=== PATIENT | female | born 1975 | race Caucasian/White ===

== ENCOUNTER → 2020-01-11 10:11 | Outpatient (CLI) | payer OTHER, SELFPAY | PROVIDERS: PCP Physician Assistant; Referring Provider Family Medicine; Visit Provider Family Medicine | DX: R50.9 Fever, unspecified (principal) | CPT/HCPCS: 87635; C9803; U0003 ==

== ENCOUNTER 2020-02-11 15:55 | Outpatient (RCR) | payer OTHER, SELFPAY | END 2020-02-11 23:59 | disposition home or self-care (01) | LOC: NS 15:55 | PROVIDERS: PCP Physician Assistant; Visit Provider Physician Assistant | DX: Z71.3 Dietary counseling and surveillance (principal); E66.01 Morbid (severe) obesity due to excess calories; Z68.41 Body mass index [BMI] 40.0-44.9, adult | CPT/HCPCS: 97802 ==

== ENCOUNTER 2020-03-19 20:48 | Emergency (ER) | payer OTHER, SELFPAY ==
[2020-03-19 20:48] VITALS: BP 134/100; PULSE 115; RESP 20; TEMP 35.4; O2SAT 98; BMI 45.7
--- NOTE | 2020-03-19 21:03 | RAD_ITS ---
STUDY: X-RAY CHEST REASON FOR EXAM: Female, 44 years old. Dyspnea, shortness of breath, COVID positive. TECHNIQUE: Single AP portable view of the chest. COMPARISON: None. FINDINGS: The lungs are clear and expanded. There is no demonstrated pleural abnormality. Normal size heart. Normal mediastinum and kacie. Normal visualized pulmonary arteries. Normal visualized aortic arch and descending thoracic aorta. Normal visualized thoracic spine. Normal visualized ribs, clavicles, and shoulders. There is no demonstrated abnormality of the visualized soft tissue structures of the upper abdomen. RAD/Chest 1 View (Portable) IMPRESSION: Normal x-ray examination of the chest. Electronically Signed: Alessio Corral MD at 21:41 EST , Service support ,
[2020-03-19 21:21] VITALS: BP 133/100; PULSE 110; RESP 20; TEMP 35.9; O2SAT 97; O2SAT 98
--- NOTE | 2020-03-19 21:44 | ED.VISSUMM ---
- ER Visit Summary Date of Service: 03/19/20 Chief Complaint: Shortness of breath History of Present Illness: The patient is a 44 F who was diagnosed with COVID-19 earlier this week. She felt short of breath today, and was advised to come to the ED if she felt short of breath. She also has a cough. No history of heart disease or PE. No other complaints at this time. Physical Examination: Afebrile and vital signs unremarkable except for heart rate of 110 and hypertension. She appears in no acute distress, speaking, moving, breathing comfortably. Lungs are clear in all felix. Heart is regular. Skin appears normal. Test Results: Chest x-ray is unremarkable. Emergency Department Course and Treatment: Patient likely has symptoms from her COVID-19 infection. No history of heart disease, PE, lung disease. She was able to jog in place, and her oxygen was 97%. Chest x-ray was unremarkable. I believe this is a normal symptom of her COVID-19 infection. Return for worsening dyspnea, hypoxia, any new symptoms or concerns. Treatment Plan: As above Disposition: Discharge Impression: COVID-19 This note was generated with [employer] dictation software. It may contain incorrect words, spelling, and punctuation that were not noted in review of the chart prior to signing ED Disposition - Plan for ED Patient: Referrals: Rommel Wisdom PA [Primary Care Provider] -
--- NOTE | 2020-03-19 21:45 | ED.DEP ---
ED Disposition - Plan for ED Patient: Instructions: Coronavirus Disease 2019 (COVID-19) Referrals: Rommel Wisdom PA [Primary Care Provider] -
[2020-03-19 21:53] VITALS: BP 135/83; PULSE 98; RESP 16; O2SAT 99
== END 2020-03-19 21:53 | disposition home or self-care (01) ==
LOC: ED 21:46
PROVIDERS: Emergency Provider Emergency Medicine; PCP Physician Assistant
DX: U07.1 COVID-19 (principal); F32.9 Major depressive disorder, single episode, unspecified
CPT/HCPCS: 71045; 99282

== ENCOUNTER 2023-02-05 17:41 | Emergency (ER) | payer OTHER, SELFPAY ==
[2023-02-05 17:42] VITALS: BP 134/88; PULSE 75; RESP 18; TEMP 36.6; O2SAT 99; BMI 29.2
--- NOTE | 2023-02-05 17:55 | RAD_ITS ---
EXAM: XR LEFT KNEE COMPLETE, 4 OR MORE VIEWS CLINICAL INDICATION: INJURY TECHNIQUE: Four or more views of the left knee. COMPARISON: No relevant prior studies available. FINDINGS: BONES/JOINTS: Unremarkable. No acute fracture. No subluxation. Normal alignment. Preservation of the joint space. No sclerotic or destructive changes observed. SOFT TISSUES: Unremarkable. No soft tissue swelling or gas. No radiopaque foreign body. RAD/Knee 4 or More Views IMPRESSION: Negative left knee x-rays. Electronically Signed: Rafat Odonnell MD at 18:36 EDT ,
--- NOTE | 2023-02-05 17:55 | RAD_ITS ---
EXAM: XR LEFT ELBOW COMPLETE, 3 OR MORE VIEWS CLINICAL INDICATION: FALL TECHNIQUE: Frontal, lateral and oblique views of the left elbow. COMPARISON: No relevant prior studies available. FINDINGS: BONES/JOINTS: Unremarkable. There is no displacement of the anterior or posterior fat pads. No acute fracture. No subluxation. Normal alignment. Preservation of the joint space. No destructive or sclerotic lesions. SOFT TISSUES: Unremarkable. No soft tissue swelling or gas. No radiopaque foreign body. RAD/Elbow min 3 Views IMPRESSION: Negative left elbow. Electronically Signed: Rafat Odonnell MD at 18:45 EDT ,
--- NOTE | 2023-02-05 17:55 | RAD_ITS ---
EXAM: XR LEFT WRIST COMPLETE, 3 OR MORE VIEWS CLINICAL INDICATION: INJURY TECHNIQUE: Frontal, lateral and oblique views of the left wrist. COMPARISON: No relevant prior studies available. FINDINGS: BONES/JOINTS: Unremarkable. No acute fracture. No subluxation. Normal alignment. Preservation of the joint space. No sclerotic or destructive changes observed. SOFT TISSUES: Unremarkable. No soft tissue swelling or gas. No radiopaque foreign body. RAD/Wrist min 3 Views IMPRESSION: Negative left wrist x-rays. Electronically Signed: Rafat Odonnell MD at 18:40 EDT ,
--- NOTE | 2023-02-05 19:32 | ED.VIS.FALL ---
HPI HPI - Fall History of Present Illness Chief Complaint: Fall Informant: patient Narrative Narrative: 47-year-old female was at work tonight when she slipped on the wet floor. Right leg went out in front of her with her left leg bent underneath and into a splint like formation. She states that she tried to catch herself with the left wrist and stoves in the left arm. She notes pain from the wrist up into the shoulder. She denies any head injury. She denies any pelvic or thigh pain. She notes bruising to the inferior left knee. [facility] Medical History (Updated 02/05/23 @ 20:[address] Keanu Guardado, DO) Anxiety Depression Migraine Home Medications bupropion HCl (smoking deter) 150 mg tablet,12 hr sustained-release(smoking deterrent) 150 mg PO DAILY 03/19/20 [History Last Taken Unknown] citalopram 20 mg tablet 20 mg PO DAILY 03/19/20 [History Last Taken Unknown] norethindrone (contraceptive) 0.35 mg tablet 1 tab PO DAILY 03/19/20 [History Last Taken Unknown] Allergy/AdvReac Type Severity Reaction Status Date / Time banana Allergy Swelling Verified 02/05/23 17:42 ibuprofen [From Motrin] Allergy Other Verified 02/05/23 17:42 latex Allergy Swelling Verified 02/05/23 17:42 Social History Smoking Status: Never smoker ROS ROS ED Constitutional Constitutional ED: Denies chills or weight loss Eyes Eyes: Denies change in vision or diplopia ENT ENT ED: Denies ear pain, rhinorrhea or sore throat Cardiovascular Cardiovascular: Denies chest pain, orthopnea, palpitations or racing heartbeat Respiratory/Chest Respiratory/Chest: Denies cough, dyspnea or orthopnea Gastrointestinal Gastrointestinal: Denies abdominal pain, diarrhea, nausea or vomiting Genitourinary Genitourinary ED: Denies dysuria, hematuria or urinary frequency Musculoskeletal Musculoskeletal: Reports neck pain and other Details: See HPI ; Denies arthralgias, back pain or myalgias Integumentary Denies abscess or rash Neurologic Neurologic: Denies headache(s) or weakness Psychiatric Psychiatric: Denies anxiety, depression, suicidal ideation or suicidal thoughts Endocrine Endocrinology: Denies polydipsia, polyphagia or polyuria Allergic/Immunologic Allergic/Immunologic ED: Denies mouth swelling, tongue swelling or urticaria EXAM Physical Exam Const Vital Signs: 02/05/23 17:42 02/05/23 19:20 Temperature 97.8 F Temperature Source Temporal Pulse Rate 75 Respiratory Rate 18 Respiratory Effort Normal Non-Labored Respiratory Pattern Normal Blood Pressure 134/88 H Blood Pressure Mean 103 Pulse Ox 99 Positive well nourished and well developed General Appearance ED: well developed HEENT Reports normocephalic, head/scalp atraumatic and moist mucous membranes Eyes PERRL and EOMs intact bilaterally Neck no lymphadenopathy, supple and no JVD Resp normal respiratory effort and clear to auscultation bilaterally Cardio regular rate, regular rhythm and no murmurs GI normal to inspection, nondistended, normoactive bowel sounds and non-tender Palpation: soft Back/Spine no CVA tenderness and normal ROM Extremity Extremity Narrative: Patient reports tenderness near the tibial tuberosity on the left. Extensor mechanism is intact. No significant ecchymosis effusion or deformity noted. Patient notes tenderness at the wrist elbow and shoulder joints on the left. She has tenderness along the left trapezius muscle. Supraspinatus appears intact. She is with range of motion. General Extremety ED: Negative for edema General Extremity: Negative for edema Neuro oriented x3 and CN's II-XII intact bilaterally Sensorium / Orientation: alert Motor Exam: strength 5/5 throughout Psych mental status grossly normal Mood & Affect: Negative for depressed or tearful Skin no rashes or lesions noted and no wounds MDM MDM MDM Narrative Medical decision making narrative: My interpretation of the plain films of the left elbow is no acute fracture. My interpretation of the plain films of the left knee is no acute fracture. Interpretation of the plain films of the left wrist is no acute fracture. My interpretation of the plain films of the left shoulder is no acute fracture. Patient was given work restrictions as well as follow-up if not improved. Would recommend RICEM therapy. Radiography Diagnostic Testing: Clinical Impression(s) from Imaging Studies Elbow X-Ray 02/05/23 17:55 IMPRESSION: Negative left elbow. Electronically Signed: Rafat Odonnell MD at 18:45 EDT , Knee X-Ray 02/05/23 17:55 IMPRESSION: Negative left knee x-rays. Electronically Signed: Rafat Odonnell MD at 18:36 EDT , Wrist X-Ray 02/05/23 17:55 IMPRESSION: Negative left wrist x-rays. Electronically Signed: Rafat Odonnell MD at 18:40 EDT , Shoulder X-Ray 02/05/23 20:00 IMPRESSION: Negative left shoulder x-rays. Electronically Signed: Rafat Odonnell MD at 20:28 EDT , Discharge Plan Triage Chief Complaint: Fall ED Provider: Keanu Guardado Dx/Rx/DC Orders Clinical Impression: Contusion of elbow, left, Contusion of knee, left, Left wrist sprain, Sprain of left shoulder Instructions: ED Shoulder Sprain Prescriptions: No Action citalopram 20 MG tablet 20 mg PO DAILY norethindrone (contraceptive) 0.35 MG tablet 1 tab PO DAILY bupropion HCl (smoking deter) 150 MG tablet extended release 12 hr 150 mg PO DAILY Primary Care Provider: Rommel Wisdom Referrals: [facility] [Non-Staff] - As Needed Rommel Wisdom, PA [Primary Care Provider] - Disposition Disposition: Home, Self Care
--- NOTE | 2023-02-05 20:00 | RAD_ITS ---
EXAM: XR LEFT SHOULDER COMPLETE, 2 OR MORE VIEWS CLINICAL INDICATION: injury TECHNIQUE: Two or more views of the left shoulder. COMPARISON: No relevant prior studies available. FINDINGS: BONES/JOINTS: Unremarkable. No acute fracture. No subluxation. Normal alignment. Preservation of the joint space. No sclerotic or destructive changes observed. SOFT TISSUES: Unremarkable. No soft tissue swelling or gas. No radiopaque foreign body. RAD/Shoulder min 2 Views IMPRESSION: Negative left shoulder x-rays. Electronically Signed: Rafat Odonnell MD at 20:28 EDT ,
== END 2023-02-05 21:04 | disposition home or self-care (01) ==
PROVIDERS: Emergency Provider Emergency Medicine; PCP Physician Assistant; Visit Provider Emergency Medicine
DX: S80.02XA Contusion of left knee, initial encounter (principal); S50.02XA Contusion of left elbow, initial encounter; S63.502A Unspecified sprain of left wrist, initial encounter; S43.402A Unspecified sprain of left shoulder joint, initial encounter; W01.0XXA Fall on same level from slipping, tripping and stumbling without subsequent striking against object, initial encounter
CPT/HCPCS: 73030; 73080; 73110; 73564; 99282

== ENCOUNTER 2023-03-25 20:25 | Emergency (ER) | payer OTHER, SELFPAY ==
[2023-03-25 20:27] VITALS: BP 106/86; PULSE 104; RESP 18; TEMP 36.9; O2SAT 99; BMI 40.1
--- NOTE | 2023-03-25 21:52 | CT_ITS ---
STUDY: CT ABDOMEN AND PELVIS WITH CONTRAST REASON FOR EXAM: Female, 47 years old. abd pain post colonoscopy RADIATION DOSAGE (If Supplied By Facility): CTDIvol = ( 14.09 ) mGy, DLP = ( 1073.13 ) mGycm TECHNIQUE: IV 75mL Isovue-370 was administered. Transaxial images were obtained from the dome of the diaphragm to the symphysis pubis in the portal venous phase. Multiplanar coronal and sagittal images were reformatted. Individualized Dose Optimization Techniques Were Used For This CT. COMPARISON: No relevant prior comparison study available FINDINGS: LOWER CHEST: Lung bases are clear. No cardiomegaly or pericardial effusion. LIVER: The liver is normal in size, shape, and attenuation. No focal mass. GALLBLADDER AND BILIARY TREE: The gallbladder is normally distended. No gallstones. No gallbladder wall thickening or edema. No pericholecystic fluid. No intra- or extrahepatic biliary ductal dilation. PANCREAS: No focal cystic or solid mass. SPLEEN: Normal size without focal cystic or solid mass. ADRENAL GLANDS: No nodules. KIDNEYS AND URETERS: Normal renal size and position. No hydronephrosis. 0.2 cm calculus at the upper pole of the left kidney.. PERITONEUM: Small volume of fluid in the pelvis which measures higher than simple fluid density. This may be blood products. No free air. No other fluid collection. BOWEL: The stomach is unremarkable. Normal caliber small bowel. There is no obstruction. No colonic wall thickening or inflammation. No free air or free fluid. No evidence of acute appendicitis. LYMPH NODES: No enlarged mesenteric or retroperitoneal lymph nodes. VESSELS: Aorta is non-dilated. URINARY BLADDER: Unremarkable. REPRODUCTIVE ORGANS: No pelvic masses. IUD in place. ABDOMINAL WALL: No discrete abdominal or pelvic wall hernia. BONES: No lytic or blastic abnormality. Mild degenerative change throughout the spine. CT/Abdomen/Pelvis W IV Cont ONLY IMPRESSION: Small volume of free fluid layering in the pelvis which measures higher than simple fluid attenuation. This could be blood products. No free air. No inflammatory change in the abdomen or pelvis. Electronically Signed: Nikolas Kearns MD at 22:27 EST ,
[2023-03-25] MEDS: LORazepam 2 MG/ML Syringe 1 MG IV (22:08)
[2023-03-25 22:09] LABS: Absolute Lymphocyte Count 2.36 X10^3/uL (0.83-4.51); Absolute Neutrophil Count 5.5 X10^3/uL (2.0-7.7); Basophil# 0.06 X10^3/uL; Basophil% 0.7 % (0-1); Eosinophil# 0.07 X10^3/uL; Eosinophils% 0.8 % (0-5); Hematocrit 40.6 % (37-47); Hemoglobin 13.3 g/dL (12.0-15.0); Lymphocyte # 2.36 X10^3/ul (0.83-4.51); Lymphocyte % 26.8 % (19-41); Mean Corp Hgb Conc 32.8 g/dL (32-36); Mean Corpuscular Hgb 30.4 pg (27.0-32.0); Mean Corpuscular Volume 92.7 fL (81-99); Mean Platelet Vol. 10.2 fl (6.2-12.0); Monocyte# 0.82 X10^3/uL; Monocyte% 9.3 % (0-10); NRBC Flagged by Analyzer 0 % (0-5); Neutrophil # 5.46 X10^3/uL (2.7-7.7); Neutrophil % 62.1 % (47-70); Platelet Count 415 K/mm3 (150-450); RBC Distribution Width CV 12.1 % (11.6-14.6); RBC Distribution Width SD 41.4 fl (35.1-43.9); Red Blood Count 4.38 M/mm3 (4.2-5.4); White Blood Count 8.8 K/mm3 (4.4-11.0)
[2023-03-25 22:35] LABS: ALB/GLOB Ratio 1.1 RATIO (0.9-2.4); AST(SGOT) 14 U/L (15-37); Alanine Aminotransfer ALT/SGPT 21 U/L (13-56); Albumin, Serum 3.7 g/dL (3.2-5.0); Alkaline Phosphatase 72 U/L (45-117); Anion Gap 5 (5-15); BUN 13 mg/dL (7-18); BUN/Creat Ratio 9.8 RATIO (10-20); Calcium,Total 8.7 mg/dL (8.5-10.1); Chloride 108 mmol/L (98-107); Creatinine, Serum 1.33 mg/dL (0.55-1.02); EST Glomerular Filtration Rate 46 mL/min (>60); Est Glom Filt Rate - Afr Amer 55 mL/min (>60); Globulin 3.4 g/dL (2.2-4.2); Glucose 123 mg/dL (74-106); Lipase 36 U/L (13-75); Potassium 3.8 mmol/L (3.5-5.1); Protein, Total 7.1 g/dL (6.4-8.2); Sodium Level 140 mmol/L (136-145)
--- NOTE | 2023-03-25 22:43 | ED.VIS.GI ---
HPI HPI - GI History of Present Illness Chief Complaint: Abd Pain Detail of Chief Complaint: Abdominal pain after colonoscopy today. Informant: patient Abdominal Pain/Flank Pain Onset: Today Context: Gradual Onset Timing: Continuous Quality: Aching and Cramping Location: Diffuse Current Severity: Mild Maximum Severity: Moderate Worsened by: Nothing Relieved by: Nothing Nausea/Vomiting/Emesis GI Symptom: Negative for Nausea or Vomiting Diarrhea/Melena/Hematochezia GI Symptom: Negative for Melena or Hematochezia Associated Symptoms Associated Symptoms: Negative for Dysuria, Frequency or Hematuria Narrative Narrative: 47-year-old female no segment past medical history. Has a family history of colon cancer. Today had a colonoscopy done by Dr. Moshe Blount at the [facility]. states she was doing well but has developed diffuse abdominal pain and cramping. With discomfort in her left shoulder. States she has had multiple colonoscopies in the past and typically does not have this amount of discomfort afterwards. She denies any fever. No dysuria. Prior similar symptoms: No Recent Illness/Hospitalization: No PFSH PFSH Medical History Anxiety Depression Migraine Home Medications citalopram 20 mg tablet 20 mg PO DAILY 03/19/20 [History Last Taken Unknown] bupropion HCl 300 mg 24 hr tablet, extended release 300 mg PO DAILY 03/25/23 [History Last Taken Unknown] levonorgestrel 21 mcg/24 hours (8 yrs) 52 mg intrauterine device (Mirena) 1 device intrauterine control 03/25/23 [History Last Taken Unknown] ondansetron 4 mg disintegrating tablet 4 mg PO DAILY PRN nausea and vomiting 03/25/23 [History Last Taken Unknown] rizatriptan 10 mg tablet (Maxalt) See Rx Instructions PO .COMPLEX 03/25/23 [History Last Taken Unknown] Allergy/AdvReac Type Severity Reaction Status Date / Time banana Allergy Swelling Verified 03/25/23 20:27 ibuprofen [From Motrin] Allergy Other Verified 03/25/23 20:27 latex Allergy Swelling Verified 03/25/23 20:27 Social History Smoking Status: Never smoker ROS ROS ED ROS Narrative Abdominal pain. Review of Systems ROS Unobtainable: Denies due to encephalopathy Constitutional Constitutional ED: Denies chills or fever(s) ENT ENT ED: Denies ear pain Cardiovascular Cardiovascular: Denies chest pain Respiratory/Chest Respiratory/Chest: Denies cough Gastrointestinal Gastrointestinal: Reports abdominal pain; Denies constipation, diarrhea, melena, nausea or vomiting Genitourinary Genitourinary ED: Denies dysuria or hematuria Musculoskeletal Musculoskeletal: Denies arthralgias Integumentary Denies abscess Neurologic Neurologic: Denies headache(s) Psychiatric Psychiatric: Denies anxiety Endocrine Endocrinology: Denies polydipsia Hematologic/Lymphatic Hematologic/Lymphatic: Denies easy bleeding or easy bruising Allergic/Immunologic Allergic/Immunologic ED: Denies mouth swelling, tongue swelling or urticaria EXAM Physical Exam Narrative Exam Narrative: Well-appearing 47-year-old female. Vital signs are stable afebrile. She does not look septic nor toxic. Does not look dehydrated. H EENT exam unremarkable. Neck nontender. Moist extremities. Lungs clear to auscultation bilaterally. Heart regular rhythm rate about 100 no murmur. Abdomen soft. Diffusely tender. No peritoneal signs. No distention. No localizing right upper or right lower quadrant tenderness. No hernia or mass. No signs of obstruction. Moving all 4 extremities. Nontender. No edema. She is awake and alert. Moving all 4 extremities. Back nontender. Const Vital Signs: 03/25/23 20:27 Temperature 98.5 F Temperature Source Temporal Pulse Rate 104 H Respiratory Rate 18 Blood Pressure 106/86 H Blood Pressure Mean 92 Pulse Ox 99 Positive well nourished and well developed; Negative for cachectic, contractures or unkempt General Appearance ED: well developed and NAD; Negative for unkempt, cachectic, contractures or pallor Nutritional Appearance: Negative for cachectic HEENT Reports moist mucous membranes normocephalic and atraumatic; Negative for trauma or tenderness Eyes PERRL and EOMs intact bilaterally General Eye ED: Negative for pale conjunctiva or scleral icterus Neck no lymphadenopathy, supple and no JVD General: Negative for tenderness Carotids: Negative for other Lymph Lymphatic: Negative for other Resp normal respiratory effort and clear to auscultation bilaterally Effort and Inspection: Negative for respiratory distress Auscultation: Negative for rales, rhonchi or wheezes Cardio regular rate, regular rhythm, S1 normal heart sound, S2 normal heart sound and no murmurs Rate: Negative for bradycardia or tachycardic Rhythm: Negative for abnormal rhythm GI non-distended and no masses; Negative for non-tender Inspection: Negative for abdominal distention Auscultation: normoactive bowel sounds Palpation: soft and tender; Negative for guarding, rigid, hepatomegaly, splenomegaly, hernia, mass, pulsatile mass or rebound tenderness present Back/Spine no CVA tenderness General Back: Negative for CVA tenderness Cervical Spine: Negative for cervical spine tenderness Thoracic Spine / Upper Back: Negative for thoracic spinal tenderness Lumbar Spine / Lower Back: Negative for lumbar spinal tenderness Coccyx: Negative for other Extremity full ROM General Extremety ED: Negative for edema or tenderness General Extremity: Negative for edema Neuro CN's II-XII intact bilaterally and moves all extremities Sensorium / Orientation: alert, oriented to person, oriented to place and oriented to time; Negative for orientation impaired, confused, lethargic or stuporous Motor Exam: strength 5/5 throughout Psych mental status grossly normal and thought process normal Appearance: Negative for unkempt Attitude: No agitated Mood & Affect: Negative for depressed, anxious or tearful Skin no wounds General Skin Exam: Negative for jaundice or pallor Lesions: no lesions Rashes: no rashes Trauma: Negative for abrasion Nails: Negative for discolored MDM MDM MDM Narrative Medical decision making narrative: 47-year-old female complaining of abdominal pain and cramping after having colonoscopy today. Other than mild abdominal tenderness exam is benign. CAT scan and labs are pending. She did not want a thing for pain at this time. Repeat exam patient is doing well. Abdomen benign. No significant pain or tenderness. She has not received anything for pain because she did not want anything for pain. We discussed her test results. She is comfortable being discharged home with outpatient follow-up. She knows to return if she has increasing pain, fever or feeling worse. She will follow-up with Dr. Blount. I do have him on page at this time. History & Record Review Discussion w/independent historian: Patient Additional record(s) reviewed:: Prior inpatient record, Prior outpatient record, Prior ED visit, Prior labs and No prior records Lab Data Attestation: I reviewed the patient's lab results. Lab results narrative: CBC unremarkable. White count 8. H&H of 13 and 40. Platelets 415. Electrolytes unremarkable gap of 5. BUN of 13 creatinine 1.3. Glucose 123. Liver enzymes are normal. Lipase 36. CT of the abdomen shows no free air or perforation no obstruction. There is a small pelvic fluid collection of uncertain etiology. Labs: Laboratory Results - last 24 hr 03/25/23 21:11 WBC 8.8 RBC 4.38 Hgb 13.3 Hct 40.6 MCV 92.7 MCH 30.4 MCHC 32.8 RDW Std Deviation 41.4 RDW Coeff of Hoda 12.1 Plt Count 415 MPV 10.2 Immature Gran % (Auto) 0.300 Neut % (Auto) 62.1 Lymph % (Auto) 26.8 [place] % (Auto) 9.3 Eos % (Auto) 0.8 Baso % (Auto) 0.7 Absolute Neuts (auto) 5.5 Absolute Lymphs (auto) 2.36 Nucleated RBC % 0 Sodium 140 Potassium 3.8 Chloride 108 H Carbon Dioxide 27.0 Anion Gap 5 BUN 13 Creatinine 1.33 H Estim Creat Clear Calc 41.80 Est GFR (MDRD) Af Amer 55 L Est GFR (MDRD) Non-Af 46 L BUN/Creatinine Ratio 9.8 L Glucose 123 H Calcium 8.7 Total Bilirubin 0.20 AST 14 L ALT 21 Alkaline Phosphatase 72 Total Protein 7.1 Albumin 3.7 Globulin 3.4 Albumin/Globulin Ratio 1.1 Lipase 36 Radiography Diagnostic Testing: Clinical Impression(s) from Imaging Studies Abdomen/Pelvis CT 03/25/23 21:52 IMPRESSION: Small volume of free fluid layering in the pelvis which measures higher than simple fluid attenuation. This could be blood products. No free air. No inflammatory change in the abdomen or pelvis. Electronically Signed: Nikolas Kearns MD at 22:27 EST , Discharge Plan Triage Chief Complaint: Abd Pain ED Provider: Dane Machuca Dx/Rx/DC Orders Clinical Impression: H/O colonoscopy, Abdominal pain Instructions: Abdominal Pain Prescriptions: No Action citalopram 20 MG tablet 20 mg PO DAILY bupropion HCl 300 mg tablet extended release 24 hr 300 mg PO DAILY Patient Comments: take 1 tablet by mouth once daily ondansetron 4 mg tablet,disintegrating 4 mg PO DAILY PRN (Reason: nausea and vomiting) rizatriptan [Maxalt] 10 mg tablet See Rx Instructions .ROUTE .COMPLEX Rx Instructions: take 1 tab at onset of headache; if no relief may repeat 1 tab after at least 2 hrs; max = 3 tabs/24 hr Mirena 21 mcg/24 hours (8 yrs) 52 mg intrauterine device 1 device intrauterine Primary Care Provider: Rommel Wisdom Referrals: Keanu Blount MD [Med Staff - Active Staff] - As soon as possible Rommel Wisdom PA [Primary Care Provider] - Activity Restrictions/Additional Instructions: Call and follow-up with Dr. Blount's office. Return to the emergency department if you are having increasing pain, fever or intractable vomiting. Your tests today were unremarkable. There is no signs of perforation. No signs of bowel obstruction. Tylenol for pain. Gas-X. High-fiber diet. Disposition Disposition: Home, Self Care
[2023-03-25 23:06] VITALS: BP 112/75; PULSE 76; O2SAT 99
== END 2023-03-25 23:07 | disposition home or self-care (01) ==
PROVIDERS: Emergency Provider Emergency Medicine; PCP Physician Assistant; Visit Provider Emergency Medicine
DX: R10.84 Generalized abdominal pain (principal); F41.9 Anxiety disorder, unspecified; F32.A Depression, unspecified; Z80.0 Family history of malignant neoplasm of digestive organs; Z79.899 Other long term (current) drug therapy
CPT/HCPCS: 74177; 80053; 83690; 85025; 96374; 99283; Q9967; A4216

== ENCOUNTER 2023-08-29 16:54 | Emergency (ER) | payer SELFPAY ==
[2023-08-29 16:55] VITALS: BP 118/84; PULSE 92; RESP 19; TEMP 36.2; O2SAT 98; BMI 39.8
--- NOTE | 2023-08-29 17:01 | EKG12_ITS ---
Test Reason : CP Blood Pressure : / mmHG Vent. Rate : 080 BPM Atrial Rate : 080 BPM P-R Int : 148 ms QRS Dur : 080 ms QT Int : 380 ms P-R-T Axes : 068 015 037 degrees QTc Int : 438 ms Normal sinus rhythm Normal ECG Confirmed by YOGESH DENNIS MD ([id number]), copy editor CAROLINA NELSON ([id number]) on 08/30/2023 9:51:46 AM Referred By: Confirmed By:YOGESH DENNIS MD
--- NOTE | 2023-08-29 17:08 | ED.VIS.CHEST ---
HPI History of Present Illness Chief Complaint: Chest Pain Informant: patient Onset/Context/Timing Onset: Today Activity at onset: gradual Timing: Continuous and Intermittent Quality: Positive for Aching and Dull Location: Substernal Current Severity: Mild Maximum Severity: Mild Worsened By: Nothing Relieved By: Nothing Associated Symptoms: Negative for Nausea, Vomiting, Diaphoresis, Dyspnea, Cough, Fever, Lightheadedness, Acid Reflux or Palpitations Narrative Narrative: 48-year-old female history of migraine headaches. Says she has had chest pain and lightheadedness today. Chest pains midsternal dull ache and she intermittently will get better and worse. But is not really resolved. Started this morning. No associated exertional chest pain or exertional dyspnea. No history of DVT or PE. Feels like she is retaining water. States he been drinking a lot of fluids but not urinating as much. States she is only urinated twice today. She is never had any cardiac history. She has never had a stress test or heart cath. She denies any history of DVT or PE. There is no family history of clotting problems. She does travel to and from [place] at least once a month drives about [address] and went during the last week to see her significant other. No pleuritic pain. No hemoptysis. She has not had recent exertional chest pain. Prior Similar Symptoms: No Recent Illness/Hospitalization: No CVD Risk Factors: Negative for Hypertension, Diabetes, Hypercholesterolemia or Smoking PE Risk Factors: Positive for Recent Travel/Surgery; Negative for Recent Immobilization, Prior DVT or PE, Cancer or OCP + Smoking + >/=35 TAD Risk Factors: Negative for Marfan's Syndrome [facility] Medical History Anxiety Depression Migraine Home Medications citalopram 20 mg tablet 20 mg PO DAILY 03/19/20 [History Last Taken Unknown] bupropion HCl 300 mg 24 hr tablet, extended release 300 mg PO DAILY 03/25/23 [History Last Taken Unknown] levonorgestrel 21 mcg/24 hr (up to 8 years) 52 mg intrauterine device (Mirena) 1 device intrauterine control 03/25/23 [History Last Taken Unknown] ondansetron 4 mg disintegrating tablet 4 mg PO DAILY PRN nausea and vomiting 03/25/23 [History Last Taken Unknown] rizatriptan 10 mg tablet (Maxalt) See Rx Instructions PO .COMPLEX 03/25/23 [History Last Taken Unknown] Allergy/AdvReac Type Severity Reaction Status Date / Time banana Allergy Swelling Verified 03/25/23 20:27 ibuprofen [From Motrin] Allergy Other Verified 03/25/23 20:27 latex Allergy Swelling Verified 03/25/23 20:27 Social History Smoking Status: Never smoker ROS ROS ED ROS Narrative Chest pain today. Review of Systems ROS Unobtainable: Denies due to encephalopathy Constitutional Constitutional ED: Denies chills or fever(s) Eyes Eyes: Reports none ENT ENT ED: Denies ear pain or rhinorrhea Cardiovascular Cardiovascular: Reports as per HPI and chest pain; Denies palpitations or racing heartbeat Respiratory/Chest Respiratory/Chest: Denies cough, dyspnea or dyspnea on exertion Gastrointestinal Gastrointestinal: Denies abdominal pain, constipation, diarrhea, melena, nausea or vomiting Genitourinary Genitourinary ED: Denies dysuria or hematuria Musculoskeletal Musculoskeletal: Denies arthralgias or back pain Integumentary Denies abscess or Abrasions Neurologic Neurologic: Denies headache(s) Psychiatric Psychiatric: Denies anxiety or depression Endocrine Endocrinology: Denies cold intolerance Hematologic/Lymphatic Hematologic/Lymphatic: Denies easy bleeding or easy bruising Allergic/Immunologic Allergic/Immunologic ED: Denies mouth swelling, tongue swelling or urticaria EXAM Physical Exam Narrative Exam Narrative: Well-appearing 48-year-old female. Sitting upright in bed. Vital signs stable afebrile. Pulse ox 98% on room air no signs hypoxia. H EENT exam unremarkable. Neck nontender no JVD. Lungs clear to auscultation bilateral. Heart regular rhythm rate about 85 no murmur. Chest wall reproducible sternal chest discomfort. No ecchymosis or bruising. No subcu air or crepitance. No redness or warmth. Normal appearance of her chest wall but reproducibly tender but this sternal region. Ribs are nontender. Abdomen soft nontender. Moving all 4 extremities. I do not appreciate any edema or cords. 5 out of 5 oracle technical developer strength. Dorsi plantarflexion intact. Calves are nonspecifically tender. Neurologically she is awake and alert with no focal motor deficits. Back nontender. Const Vital Signs: 08/29/23 16:55 08/29/23 17:01 08/29/23 17:03 Temperature 97.2 F L Temperature Source Temporal Pulse Rate 92 Respiratory Rate 19 H Respiratory Effort Normal Non-Labored Blood Pressure 118/84 H Blood Pressure Mean 95 Pulse Ox 98 Oxygen Delivery Method Room Air Room Air 08/29/23 17:04 08/29/23 17:45 08/29/23 19:00 Temperature Temperature Source Pulse Rate 79 78 Respiratory Rate 15 16 Respiratory Effort Blood Pressure 113/79 Blood Pressure Mean 90 Pulse Ox 96 98 Oxygen Delivery Method Room Air Room Air Room Air Positive well nourished and well developed; Negative for cachectic, contractures or unkempt General Appearance ED: well developed and NAD; Negative for unkempt, cachectic, contractures or pallor Nutritional Appearance: Negative for cachectic HEENT Reports moist mucous membranes; Denies dry mucous membranes normocephalic and atraumatic; Negative for trauma or tenderness Mouth ED: No dry mucous membranes Mouth: No dry mucous membranes Eyes PERRL and EOMs intact bilaterally General Eye ED: Negative for pale conjunctiva or scleral icterus Neck no lymphadenopathy, supple and no JVD General: Negative for tenderness Chest Wall inspection of chest normal and palpation of chest normal Chest: Negative for tenderness Resp normal respiratory effort and clear to auscultation bilaterally Effort and Inspection: Negative for respiratory distress Auscultation: Negative for rales, rhonchi, wheezes or diminished lung sounds Cardio regular rate, regular rhythm, S1 normal heart sound, S2 normal heart sound and no murmurs Rate: Negative for bradycardia or tachycardic Rhythm: Negative for abnormal rhythm Peripheral Pulses: pulses 2+ throughout GI normal to inspection, nondistended, normoactive bowel sounds, soft to palpation, non-tender, non-distended and no masses Back/Spine no CVA tenderness and no thoracic nor lumbar tenderness General Back: Negative for CVA tenderness Cervical Spine: Negative for cervical spine tenderness Extremity normal to inspection General Extremety ED: Negative for edema, pulses abnormal or tenderness General Extremity: Negative for edema or pulses abnormal Neuro oriented x3 and CN's II-XII intact bilaterally Sensorium / Orientation: awake, alert, oriented to person, oriented to place and oriented to time; Negative for confused, lethargic or stuporous Motor Exam: strength 5/5 throughout Psych mental status grossly normal Appearance: Negative for unkempt Attitude: No agitated Mood & Affect: Negative for depressed, anxious, tearful or other Skin no rashes or lesions noted and no wounds General Skin Exam: Negative for jaundice or pallor Rashes: No rashes noted Trauma: Negative for abrasion or laceration Image ED - Body Diagram Man: 1. Reproducible sternal chest wall pain. Normal appearance. No redness or warmth. No crepitance or bruising. Heart Score History: Slightly/Non-Suspicious ECG: Normal Age: >45 - <65 years Risk Factors: No Risk Factors Troponin: </= Normal Limit Score: 1 MDM MDM MDM Narrative Medical decision making narrative: 48-year-old female with atypical nonexertional chest pain that is reproducible. Very well may be costochondritis. She will undergo cardiac workup. Also will obtain a D-dimer due to her history of frequent travel to and from [place] each month. Otherwise exam benign. Cardiac workup pending. She received aspirin. Repeat exam patient doing well at 5:50 PM. She is tearful I think she had a upsetting conversation on the phone. We went over her initial test which were all normal. She does not need a CTA her D-dimer was negative. We are waiting the 2-hour troponin. If that is okay she will be discharged home. I think this is reproducible chest wall pain consistent with costochondritis. Ice and Motrin. She did not want a thing for pain. Repeat exam patient doing well at 8:02 PM. Second troponin came back and was negative also less than 3. She will be discharged home. I think her chest pain is consistent with chest wall pain and costochondritis. Ice to the area. Motrin for pain and inflammation. Follow-up if not improving. History & Record Review Discussion w/independent historian: Patient Additional record(s) reviewed:: Prior inpatient record, Prior outpatient record, Prior ED visit and Prior labs Lab Data Attestation: I reviewed the patient's lab results. Lab results narrative: CBC normal. White count of 6. H&H 13 and 38. Platelets 373. Electrolytes unremarkable. Normal BUN and creatinine. Gap 4. Troponin normal at 4. 2-hour troponin less than 3. D-dimer normal at 0.33. Chest x-ray and EKG normal. Labs: Laboratory Results - last 24 hr 08/29/23 08/29/23 17:05 19:09 WBC 6.6 RBC 4.23 Hgb 13.2 Hct 38.6 MCV 91.3 MCH 31.2 MCHC 34.2 RDW Std Deviation 42.4 RDW Coeff of Hoda 12.7 Plt Count 373 MPV 10.1 Immature Gran % (Auto) 0.200 Neut % (Auto) 61.2 Lymph % (Auto) 27.3 [place] % (Auto) 7.4 Eos % (Auto) 2.7 Baso % (Auto) 1.2 H Absolute Neuts (auto) 4.0 Absolute Lymphs (auto) 1.80 Nucleated RBC % 0 D-Dimer Quant (PE/DVT) 0.33 Sodium 139 Potassium 4.0 Chloride 107 Carbon Dioxide 28.0 Anion Gap 4 L BUN 16 Creatinine 0.93 Estim Creat Clear Calc 82.10 Est GFR (MDRD) Af Amer 83 Est GFR (MDRD) Non-Af 69 BUN/Creatinine Ratio 17.2 Glucose 122 H Calcium 9.2 Troponin I High Sens 4 < 3 L Radiography Chest X-Ray - ED: 1 View, Read by ED Physician, Normal, Heart, Lungs, Mediastinum and No Acute Disease Diagnostic Testing: Clinical Impression(s) from Imaging Studies Chest X-Ray 08/29/23 17:12 IMPRESSION: Normal x-ray examination of the chest. Electronically Signed: Helio Myrick MD at 17:40 EDT Reading Location ID and State: [address] [place] [address] Tel , Service support , Chest x-ray, portable, single view interpreted by myself shows no acute abnormality. Normal cardiac silhouette. Normal mediastinum. Normal lung felix. Rhythm Strip Rhythm Strip: Sinus Rhythm Rate: 80 Ectopy: None EKG Initial EKG: Attestation: I personally reviewed and interpreted this EKG as follows: Interpretation: Sinus Rhythm and No Acute Injury Pattern Comments: Normal sinus rhythm rate of 80 no acute signs of MA or ischemia. No dysrhythmia. Normal EKG. Discharge Plan Triage Chief Complaint: Chest Pain ED Provider: Dane Machuca Dx/Rx/DC Orders Clinical Impression: Acute chest wall pain, Chest pain Instructions: ED Chest Wall Pain, Costochondritis Prescriptions: No Action citalopram 20 MG tablet 20 mg PO DAILY bupropion HCl 300 mg tablet extended release 24 hr 300 mg PO DAILY Patient Comments: take 1 tablet by mouth once daily ondansetron 4 mg tablet,disintegrating 4 mg PO DAILY PRN (Reason: nausea and vomiting) rizatriptan [Maxalt] 10 mg tablet See Rx Instructions .ROUTE .COMPLEX Rx Instructions: take 1 tab at onset of headache; if no relief may repeat 1 tab after at least 2 hrs; max = 3 tabs/24 hr Mirena 21 mcg/24 hours (8 yrs) 52 mg intrauterine device 1 device intrauterine Primary Care Provider: Rommel Wisdom Referrals: Rommel Wisdom, PA [Primary Care Provider] - 3-5 Days if not improving Activity Restrictions/Additional Instructions: Your chest pain appears to be chest wall pain. Motrin for pain and inflammation. Tylenol for pain. Cool compresses to chest wall. Follow-up with your primary care provider if not improving. Disposition Disposition: Home, Self Care
[2023-08-29] MEDS: Aspirin 81 MG TAB.CHEW 324 MG PO (17:09)
--- NOTE | 2023-08-29 17:12 | RAD_ITS ---
STUDY: X-RAY CHEST REASON FOR EXAM: Female, 48 years old. chest pain TECHNIQUE: Single frontal view of the chest. COMPARISON: March 19, 2020 FINDINGS: The lungs are clear and expanded. There is no demonstrated pleural abnormality. Normal size heart. Normal mediastinum and kacie. Normal visualized pulmonary arteries. Normal visualized aortic arch and descending thoracic aorta. Normal visualized thoracic spine. Normal visualized ribs, clavicles, and shoulders. There is no demonstrated abnormality of the visualized soft tissue structures of the upper abdomen. RAD/Chest 1 View (Portable) IMPRESSION: Normal x-ray examination of the chest. Electronically Signed: Helio Myrick MD at 17:40 EDT ,
[2023-08-29 17:22] LABS: Basophil# 0.08 X10^3/uL; Basophil% 1.2 % (0-1); Eosinophil# 0.18 X10^3/uL; Eosinophils% 2.7 % (0-5); Hematocrit 38.6 % (37-47); Hemoglobin 13.2 g/dL (12.0-15.0); Lymphocyte % 27.3 % (19-41); Mean Corp Hgb Conc 34.2 g/dL (32-36); Mean Corpuscular Hgb 31.2 pg (27.0-32.0); Mean Corpuscular Volume 91.3 fL (81-99); Mean Platelet Vol. 10.1 fl (6.2-12.0); Monocyte# 0.49 X10^3/uL; Monocyte% 7.4 % (0-10); NRBC Flagged by Analyzer 0 % (0-5); Neutrophil # 4.04 X10^3/uL (2.7-7.7); Neutrophil % 61.2 % (47-70); Platelet Count 373 K/mm3 (150-450); RBC Distribution Width CV 12.7 % (11.6-14.6); RBC Distribution Width SD 42.4 fl (35.1-43.9); Red Blood Count 4.23 M/mm3 (4.2-5.4); White Blood Count 6.6 K/mm3 (4.4-11.0)
[2023-08-29 17:25] LABS: D-Dimer Quantitative (DVT/PE) 0.33 FEU/ug/m (0.27-0.49)
[2023-08-29 17:32] LABS: Anion Gap 4 (5-15); BUN 16 mg/dL (7-18); BUN/Creat Ratio 17.2 RATIO (10-20); Calcium,Total 9.2 mg/dL (8.5-10.1); Chloride 107 mmol/L (98-107); Creatinine, Serum 0.93 mg/dL (0.55-1.02); EST Glomerular Filtration Rate 69 mL/min (>60); Est Glom Filt Rate - Afr Amer 83 mL/min (>60); Glucose 122 mg/dL (74-106); Sodium Level 139 mmol/L (136-145); Troponin-I HS (w/2H Reflex) 4 pg/mL (3.0-54.0)
[2023-08-29 17:45] VITALS: PULSE 79; RESP 15; O2SAT 96
[2023-08-29 19:00] VITALS: BP 113/79; PULSE 78; RESP 16; O2SAT 98
[2023-08-29] MEDS: Acetaminophen 500 MG Tablet 1000 MG PO (19:06)
[2023-08-29 19:12] LABS: Reflex Troponin-HS? (from REC) Y
[2023-08-29 19:40] LABS: Troponin-I HS < 3 pg/mL (3.0-54.0)
[2023-08-29 20:00] VITALS: BP 115/78; PULSE 73; RESP 18; TEMP 36.9; O2SAT 95
== END 2023-08-29 20:12 | disposition home or self-care (01) ==
LOC: ED 17:31
PROVIDERS: Emergency Provider Emergency Medicine; PCP Physician Assistant; Visit Provider Emergency Medicine
DX: R07.89 Other chest pain (principal)
CPT/HCPCS: 71045; 80048; 84484; 85025; 85379; 93005; 99284; A4216

== ENCOUNTER 2024-10-05 12:26 | Emergency (ER) | payer BC, SELFPAY ==
[2024-10-05 12:27] VITALS: BP 110/85; PULSE 77; RESP 16; TEMP 36.6; O2SAT 100; BMI 42.0
[2024-10-05] MEDS: 0.9% Normal Saline (1000mL) 1,000 ML 999 ML IV (14:06)
[2024-10-05] MEDS: Ondansetron 4 MG/2 ML Vial IV (14:12)
[2024-10-05] MEDS: Morphine 4 MG/ML Syringe IV (14:12)
--- NOTE | 2024-10-05 14:15 | RAD_ITS ---
PROCEDURE: FOOT MIN 3 VIEWS 10/05/2024 REASON FOR EXAM: PAIN TO FIFTH TOE TECHNIQUE: 3 views of the left foot. COMPARISON: None FINDINGS: Bones: No visible fracture. No suspicious bone lesion. Joints: Normal alignment. Soft tissues: Soft tissues are unremarkable. Other: RAD/Foot min 3 Views IMPRESSION: NEGATIVE FOOT SERIES Reading Location: [place] [id number]
[2024-10-05 14:27] VITALS: BP 126/67; PULSE 72; RESP 15; O2SAT 97
--- NOTE | 2024-10-05 14:38 | EDS_ITS ---
HPI History of Present Illness Chief Complaint: Headache Narrative Narrative: Chief complaint and HPI: Migraine. 49-year-old female with past medical history of migraines, anxiety, depression presents for evaluation of migraine. Onset of migraine was yesterday. Migraine headache occurred gradually with some improvement today. Associated symptom is nausea and photosensitivity. Took her Maxalt with little relief. Denies any fever, chills, shortness of breath, chest pain, URI symptoms, weakness, numbness/tingling, neurological deficit. Patient states she has also had an area on her left fourth toe that has been tender. Denies any injury to the toe. Review of systems: See HPI Medications: As listed on the chart Allergies: As listed on the chart PFSH: Per chart Vital signs: As listed on the chart. Reviewed. Physical exam: Gen: A&O x3, NAD Head: Normocephalic, atraumatic Eyes: No sclera icterus, conjunctiva clear, PERRL, EOMI ENT: Moist mucous membranes Neck: Trachea midline, No JVD, full range of motion CV: RRR, no murmurs, no peripheral edema Resp: Lungs CTA BL, no w/r/c GI: Abd soft, non-distended, non-tender, no r/r/g Musc: Full ROM, no deformity, patient has a small callus to the lateral aspect of the proximal fourth toe that is tender to palpation-no ec chymosis/erythema/warmth/crepitus, good capillary, DP/PT pulses +2 bilaterally Skin: Warm, dry Neuro: Alert, oriented, grossly intact, sensation intact Psych: Cooperative, appropriate mood and affect [facility] Medical History Anxiety Depression Migraine Home Medications ?Medication ?Instructions ?Recorded ?Last Taken ?Type bupropion HCl 300 mg 24 hr tablet, 300 mg PO DAILY 10/05/24 History extended release levonorgestrel (Mirena) 1 device intrauterine .COMPL EX 03/25/23 10/05/24 History control rizatriptan 10 mg tablet (Maxalt) See Rx Instructions PO .COMPLEX 03/25/23 0 10/05/24 History citalopram 40 mg tablet 40 mg PO DAILY 10/05/2401/21 History hydroxyzine HCl 25 mg tablet 25 mg PO Q8H PRN anxiety 10/05/24 10/05/24 History ondansetron 4 mg disintegrating 4 mg PO Q6H PRN PRN na usea/vomiting 10/05/24 10/05/24 History tablet tirzepatide (weight loss) 2.5 2.5 mg subcut QWEEK 0601/2110/05/24 History mg/0.5 mL subcutaneous pen injector (Zepbound) Allergy/AdvReac Type Severity Reaction Status Date / Time banana Allergy Swelling Verified 10/05/24 12:27 ibuprofen (From Motrin) Allergy Other Verified 10/05/24 12:27 latex Allergy Swelling Verified 10/05/24 12:27 Social History Smoking Status: Never smoker EXAM Physical Exam Const Vital Signs: 10/05/24 12:27 10/05/24 14:27 Temperature 98 F Temperature Source Oral Pulse Rate 77 72 Respiratory Rate 16 15 Blood Pressure 110/85 H 126/67 H Blood Pressure Mean 93 86 Pulse Ox 100 97 Oxygen Delivery Method Room Air Room Air [facility] MDM Radiography Diagnostic Testing: Clinical Impression(s) from Imaging Studies Foot X-Ray 10/05/24 14:15 IMPRESSION: NEGATIVE FOOT SERIES Reading Location: [place] [address] Discharge Plan Triage Chief Complaint: Headache Other Complaint: Wound ED Provider: Willi Humphrey Dx/Rx/DC Orders Prescriptions: No Action bupropion HCl 300 mg tablet extended release 24 hr 300 mg PO DAILY Patient Comments: take 1 tablet by mouth once daily rizatriptan [Maxalt] 10 mg tablet See Rx Instructions .ROUTE .COMPLEX Rx Instructions: take 1 tab at onset of headache; if no relief may repeat 1 tab after at least 2 hrs; max = 3 tabs/24 hr Mirena 21 mcg/24 hours (8 yrs) 52 mg intrauterine device 1 device intrauterine .COMPLEX Rx Instructions: 1 device intrauterinely IUD; citalopram 40 mg tablet 40 mg PO DAILY ondansetron 4 mg tablet,disintegrating 4 mg PO Q6H PRN PRN (Reason: nausea/vomiting) hydroxyzine HCl 25 mg tablet 25 mg PO Q8H PRN (Reason: anxiety) Zepbound 2.5 mg/0.5 mL pen injector 2.5 mg subcut QWEEK Rx Instructions: for 4 weeks Primary Care Provider: Rommel Wisdom Referrals: Rommel Wisdom, PA [Primary Care Provider] - Print Language: Greek
--- NOTE | 2024-10-05 14:38 | EX.ED.DYSGE1 ---
HPI History of Present Illness Chief Complaint: Headache Narrative Narrative: Chief complaint and HPI: Migraine. 49-year-old female with past medical history of migraines, anxiety, depression presents for evaluation of migraine. Onset of migraine was yesterday. Migraine headache occurred gradually with some improvement today. Associated symptom is nausea and photosensitivity. Took her Maxalt with little relief. Denies any fever, chills, shortness of breath, chest pain, URI symptoms, weakness, numbness/tingling, neurological deficit. Patient states she also has an area on her left fifth toe that has been tender. Triage note states fourth toe but this is correct. Denies any injury to the toe. Review of systems: See HPI Medications: As listed on the chart Allergies: As listed on the chart PFSH: Per chart Vital signs: As listed on the chart. Reviewed. Physical exam: Gen: A&O x3, NAD Head: Normocephalic, atraumatic Eyes: No sclera icterus, conjunctiva clear, PERRL, EOMI ENT: Moist mucous membranes Neck: Trachea midline, No JVD, full range of motion, nontender CV: RRR, no murmurs, no peripheral edema Resp: Lungs CTA BL, no w/r/c GI: Abd soft, non-distended, non-tender, no r/r/g Musc: Full ROM, no deformity, patient has a small callus to the lateral aspect of the proximal fifth toe that is tender to palpation-no ecchymosis/erythema/warmth/crepitus, good capillary, DP/PT pulses +2 bilaterally Skin: Warm, dry Neuro: Alert, oriented, grossly intact, sensation intact Psych: Cooperative, appropriate mood and affect [facility] Medical History Anxiety Depression Migraine Home Medications ?Medication ?Instructions ?Recorded ?Last Taken ?Type bupropion HCl 300 mg 24 hr tablet, 300 mg PO DAILY 03/25/23 10/05/24 History extended release levonorgestrel (Mirena) 1 device intrauterine .COMPLEX 03/25/23 10/05/24 History control rizatriptan 10 mg tablet (Maxalt) See Rx Instructions PO .COMPLEX 03/25/23 10/05/24 History citalopram 40 mg tablet 40 mg PO DAILY 10/05/24 10/05/24 History hydroxyzine HCl 25 mg tablet 25 mg PO Q8H PRN anxiety 10/05/24 10/05/24 History ondansetron 4 mg disintegrating 4 mg PO Q6H PRN PRN nausea/vomiting 10/05/24 10/05/24 History tablet tirzepatide (weight loss) 2.5 2.5 mg subcut QWEEK 10/05/24 10/05/24 History mg/0.5 mL subcutaneous pen injector (Zepbound) Allergy/AdvReac Type Severity Reaction Status Date / Time banana Allergy Swelling Verified 10/05/24 12:27 ibuprofen (From Motrin) Allergy Other Verified 10/05/24 12:27 latex Allergy Swelling Verified 10/05/24 12:27 Social History Smoking Status: Never smoker EXAM Physical Exam Const Vital Signs: 10/05/24 12:27 10/05/24 14:27 10/05/24 15:10 Temperature 98 F 98 F Temperature Source Oral Pulse Rate 77 72 69 Respiratory Rate 16 15 13 Blood Pressure 110/85 H 126/67 H 126/77 H Blood Pressure Mean 93 86 93 Pulse Ox 100 97 99 Oxygen Delivery Method Room Air Room Air MDM MDM MDM Narrative Medical decision making narrative: 49-year-old female with past medical history of migraines, anxiety, depression presents for evaluation of migraine. Has a history of migraines. Second complaint is pain to the lateral aspects of her left fifth toe. On physical exam, patient patient has a tender callus to this toe. No signs of infection. Patient denies any injury to the toe that she knows of although states she is unsure. Will obtain x-ray to assess for fracture. Patient describes her headache as her typical migraine. Did not reach maximal intensity in under 1 hour. This is neither the worst headache that she has ever experienced, nor was the onset timed with exertional activity or trauma. Patient has not experienced any fever, unusual neck pain or stiffness, syncope, or near syncope. They deny numbness, tingling, or weakness of the extremities. At this point in time, I do not think any imaging is needed as I suspect her headache is from atypical migraine. NS bolus, Zofran, Toradol referred for pain. Patient states that she gets a rash with ibuprofen therefore Toradol DC'd and patient received morphine instead. X-ray of the left foot was personally reviewed and interpreted by me, ED physician. No fracture or dislocation. Radiology in agreement. On reevaluation, patient's headache is improving. She is stable to discharge home. I told her to follow-up with her neurologist and PCP. Return precautions explained. She confirmed understanding the plan. Will refer her to podiatry for her tender callus. Impression: 1. Migraine with history of migraines 2. Left fifth toe callus Radiography Diagnostic Testing: Clinical Impression(s) from Imaging Studies Foot X-Ray 10/05/24 14:15 IMPRESSION: NEGATIVE FOOT SERIES Reading Location: [place] [address] Discharge Plan Triage Chief Complaint: Headache Other Complaint: Wound ED Provider: Willi Humphrey Dx/Rx/DC Orders Clinical Impression: Migraine, Callus of toe Instructions: ED, Migraine (Classical) Prescriptions: No Action bupropion HCl 300 mg tablet extended release 24 hr 300 mg PO DAILY Patient Comments: take 1 tablet by mouth once daily rizatriptan [Maxalt] 10 mg tablet See Rx Instructions .ROUTE .COMPLEX Rx Instructions: take 1 tab at onset of headache; if no relief may repeat 1 tab after at least 2 hrs; max = 3 tabs/24 hr Mirena 21 mcg/24 hours (8 yrs) 52 mg intrauterine device 1 device intrauterine .COMPLEX Rx Instructions: 1 device intrauterinely IUD; citalopram 40 mg tablet 40 mg PO DAILY ondansetron 4 mg tablet,disintegrating 4 mg PO Q6H PRN PRN (Reason: nausea/vomiting) hydroxyzine HCl 25 mg tablet 25 mg PO Q8H PRN (Reason: anxiety) Zepbound 2.5 mg/0.5 mL pen injector 2.5 mg subcut QWEEK Rx Instructions: for 4 weeks Stand Alone Forms: ED Work / School Excuse Primary Care Provider: Rommel Wisdom Referrals: Ifeanyi Hood DPM [Med Staff - Active Staff] - 3-5 Days Rommel Wisdom PA [Primary Care Provider] - 3-5 Days Activity Restrictions/Additional Instructions: Follow-up with your PCP and neurologist for your migraine. Follow-up with podiatry for toe callus. Return back to the ED if symptoms change or worsen. Print Language: Armenian Disposition Disposition: Home, Self Care Discharge Date/Time: 10/05/24 15:16
[2024-10-05 15:10] VITALS: BP 126/77; PULSE 69; RESP 13; TEMP 36.6; O2SAT 99
== END 2024-10-05 15:16 | disposition home or self-care (01) ==
PROVIDERS: Emergency Provider Surgery; PCP Physician Assistant; Visit Provider Surgery
DX: G43.909 Migraine, unspecified, not intractable, without status migrainosus (principal); L84 Corns and callosities
CPT/HCPCS: 73630; 96361; 96374; 96375; 99285; A4216; J2405